=== PATIENT | female | born 1975 | race Caucasian/White ===

== ENCOUNTER 2018-02-27 09:31 | Emergency (ER) | payer OTHER ==
[2018-02-27] MEDS ORDERED: IPRATROPIUM/ALBUTEROL 3 ML NEB INH STA (09:50)
[2018-02-27] MEDS ORDERED: DEXAMETHASONE 10 MG/ML VIAL PO STA (09:50)
--- NOTE | 2018-02-27 09:53 | ED Physician Documentation ---
PD HPI DYSPNEA - Stated complaint Stated Complaint: DIFF BREATHING - Chief complaint Chief Complaint: Resp - History obtained from History obtained from: Patient, Family - History of Present Illness Timing - onset: How many weeks ago (1) Timing - onset during: Rest Timing - duration: Weeks (1) Timing - details: Gradual onset, Still present Inciting event(s): URI Improved by: Inhaler/neb Worsened by: Exertion, Laying flat, Coughing Associated symptoms: Cough, Wheezing Similar symptoms before: Diagnosis (bronchitis with asthma) Recently seen: Surgery - Additional information Additional information: 42-year-old female has had her gallbladder taken out about 3 weeks ago. About 1 week ago she began to have some cough and congestion and she has developed increasing shortness of breath associated with this. She is not have any sputum production she has not had a fever. She has not had chest pain. She is having a lot of trouble breathing and despite using her inhaler and nebulizer machine she continues to be short of breath. Her indicates she has some gurgling noise when she is asleep. Patient herself states that she has infrequent asthma attacks and last had to use her inhaler about 6 months ago. She has not been on prednisone for several years. She does not use an inhaler on a daily basis. Review of Systems Constitutional: denies: Fever, Chills, Myalgias Eyes: denies: Decreased vision Ears: denies: Ear pain Nose: reports: Rhinorrhea / runny nose, Congestion Throat: denies: Sore throat Cardiac: denies: Chest pain / pressure, Palpitations Respiratory: reports: Dyspnea, Cough, Wheezing GI: denies: Abdominal Pain, Nausea, Vomiting : denies: Dysuria, Frequency PD PAST MEDICAL HISTORY - Present Medications Home Medications: Ambulatory Orders Medication Instructions Recorded Confirmed Albuterol 2.5 mg INH Q4H PRN 02/27/18 02/27/18 Azithromycin [Zithromax] 250 mg PO DAILY #6 tablet 02/27/18 Duloxetine HCl 120 mg PO DAILY 02/27/18 02/27/18 Gabapentin 400 mg PO TID 02/27/18 02/27/18 Nortriptyline [Pamelor] 25 mg PO QPM 02/27/18 02/27/18 Prazosin HCl 4 tab PO DAILY PM 02/27/18 02/27/18 Terbinafine [LamISIL] 250 mg PO DAILY 02/27/18 02/27/18 hydrOXYzine HCl [Hydroxyzine HCl] 50 mg PO TID 02/27/18 02/27/18 predniSONE [Prednisone] 40 mg PO DAILY #10 tablet 02/27/18 - Allergies Allergies/Adverse Reactions: Allergies Allergy/AdvReac Type Severity Reaction Status Date / Time Penicillins Allergy Hives Verified 02/27/18 09:36 PD ED PE NORMAL - Vitals Vital signs reviewed: Yes (tachy ) - General General: Alert and oriented X 3, No acute distress, Well developed/nourished - HEENT HEENT: Atraumatic, PERRL, EOMI, Ears normal, Moist mucous membranes, Pharynx benign, Dentition benign, Other (There is angular chelitis present bilaterally ) - Neck Neck: Supple, no meningeal sign, No bony TTP - Cardiac Cardiac: RRR, No murmur - Respiratory Respiratory: No respiratory distress, Other (diminished breath sounds without focal rhonchi ) - Abdomen Abdomen: Soft - Back Back: No CVA TTP, No spinal TTP - Derm Derm: Normal color, Warm and dry, No rash - Extremities Extremities: No deformity, No edema - Neuro Neuro: Alert and oriented X 3, fisher dip net 2-12 intact, No motor deficit, No sensory deficit, Normal speech Eye Opening: Spontaneous Motor: Obeys Commands Verbal: Oriented GCS Score: 15 - Psych Psych: Normal mood, Normal affect Results - Vitals Vitals: Vital Signs - 24 hr 02/27/18 02/27/18 02/27/18 09:34 10:02 10:20 Temperature 36.1 C L Heart Rate 106 H 83 85 Respiratory 16 16 20 Rate Blood Pressure 128/51 L 118/67 O2 Saturation 98 95 Oxygen O2 Source Room air - Rads (name of study) 2 veiw chest Radiology: Prelim report reviewed (Impression: Normal two-view chest radiography for age and body habitus.), EMP read indepedently, See rad report PD MEDICAL DECISION MAKING - ED course Complexity details: reviewed old records, reviewed results, re-evaluated patient, considered differential, d/w patient, d/w family ED course: 42-year-old female with history of asthma has relief with use of the DuoNeb and treatment here in the emergency department and dexamethasone. She is diagnosed with asthmatic bronchitis will place her on a course of antibiotic and prednisone. - Sepsis Event Vital Signs: Vital Signs - 24 hr 02/27/18 02/27/18 02/27/18 09:34 10:02 10:20 Temperature 36.1 C L Heart Rate 106 H 83 85 Respiratory 16 16 20 Rate Blood Pressure 128/51 L 118/67 O2 Saturation 98 95 Oxygen O2 Source Room air Departure - Departure Disposition: Home, Self Care Clinical Impression: Asthmatic bronchitis with acute exacerbation Qualifiers: Asthma severity: mild Asthma persistence: intermittent Qualified Code(s): J45.21 - Mild intermittent asthma with (acute) exacerbation Condition: Stable Instructions: ED Bronchitis Asthmatic Follow-Up: Christine Butterfield MD [Primary Care Provider] - Prescriptions: Azithromycin [Zithromax] 250 mg PO DAILY #6 tablet predniSONE [Prednisone] 40 mg PO DAILY #10 tablet
--- NOTE | 2018-02-27 10:16 | XRAY Report ---
Reason: soa Procedure Date: 02/27/2018 Accession Number: [id number] / [id number] Procedure: XR - Chest 2 View X-Ray CPT Code: 22478 FULL RESULT: EXAM: CHEST RADIOGRAPHY EXAM DATE: 02/27/2018 10:05 AM. CLINICAL HISTORY: Soa. COMPARISON: None. TECHNIQUE: 2 views. FINDINGS: Lungs/Pleura: No focal opacities evident. No pleural effusion. No pneumothorax. Normal volumes. Mediastinum: Heart and mediastinal contours are unremarkable. Other: None. IMPRESSION: Normal 2-view chest radiography for age and body habitus. RADIA
[2018-02-27 12:41] VITALS: BP 113/70
== END 2018-02-27 12:46 | disposition home or self-care (01) ==
LOC: ED 09:31
DX: J45.21 Mild intermittent asthma with (acute) exacerbation (principal)
CPT/HCPCS: 71046; 94640; 99283

== ENCOUNTER 2018-04-17 09:49 | Emergency (ER) | payer OTHER ==
--- NOTE | 2018-04-17 11:45 | XRAY Report ---
Reason: right chest pain Procedure Date: 04/17/2018 Accession Number: [id number] / [id number] Procedure: XR - Chest 2 View X-Ray CPT Code: 00918 FULL RESULT: EXAM: CHEST RADIOGRAPHY EXAM DATE: 04/17/2018 11:11 AM. CLINICAL HISTORY: Right chest pain. COMPARISON: None. TECHNIQUE: 2 views. FINDINGS: Lungs/Pleura: No focal opacities evident. No pleural effusion. No pneumothorax. Normal volumes. Linear atelectasis or scarring left lung base Mediastinum: Heart and mediastinal contours are unremarkable. Other: None. IMPRESSION: No active cardiopulmonary disease RADIA
[2018-04-17] MEDS ORDERED: LIDOCAINE PATCH 5% TOP STA (12:29)
[2018-04-17] MEDS ORDERED: IBUPROFEN 400 MG TABLET PO STA (12:29)
--- NOTE | 2018-04-17 13:17 | ED Physician Documentation ---
History of Present Illness - Stated complaint Stated Complaint: RIGHT BREAST PX - Chief complaint Chief Complaint: General - Additonal information Additional information: hx from pt 42 female having a massage yesterday to work on her shoulder masseuse pressed hard on upper right chest and pt felt a pop and pain and it still hurts quite a lot quang with palp movement and breathing Review of Systems Cardiac: reports: Chest pain / pressure : denies: Now EGA (denies) PD PAST MEDICAL HISTORY - Past Medical History Past Medical History: Yes Respiratory: Asthma, Shortness of breath, Sleep apnea Neuro: Migraines GI: GERD Psych: Depression, Anxiety - Past Surgical History Past Surgical History: Yes General: Cholecystectomy, 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, Other - Present Medications Home Medications: Ambulatory Orders Medication Instructions Recorded Confirmed Albuterol 2.5 mg INH Q4H PRN 02/27/18 02/27/18 Duloxetine HCl 120 mg PO DAILY 02/27/18 02/27/18 Gabapentin 400 mg PO TID 02/27/18 02/27/18 Nortriptyline [Pamelor] 25 mg PO QPM 02/27/18 02/27/18 Prazosin HCl 4 tab PO DAILY PM 02/27/18 02/27/18 hydrOXYzine HCl [Hydroxyzine HCl] 50 mg PO TID 02/27/18 02/27/18 Baclofen [Lioresal] 10 mg PO 04/17/18 Cyclobenzaprine [Flexeril] 10 mg PO TID PRN #20 tablet 04/17/18 Ibuprofen [Motrin] 400 mg PO TIDWM PRN #20 tablet 04/17/18 Lidocaine Patch 5% [Lidoderm Patch] 1 patch TOP DAILY PRN #10 patch 04/17/18 - Allergies Allergies/Adverse Reactions: Allergies Allergy/AdvReac Type Severity Reaction Status Date / Time Penicillins Allergy Hives Verified 04/17/18 10:20 - Social History Does the pt smoke?: No Smoking Status: Never smoker Does the pt drink ETOH?: Yes Does the pt have substance abuse?: Yes - Immunizations Immunizations are current?: Yes - POLST Patient has POLST: No PD ED PE NORMAL - Vitals Vital signs reviewed: Yes - Neck Neck: Supple, no meningeal sign - Cardiac Cardiac: RRR - Respiratory Respiratory: No respiratory distress, Clear bilaterally, Other (TTP anterior chest wall no crepitus or ecchymosis or swelling) Results - Vitals Vitals: Vital Signs - 24 hr 04/17/18 10:13 Temperature 36.6 C Heart Rate 78 Respiratory 18 Rate Blood Pressure 131/91 H O2 Saturation 99 Oxygen O2 Source Room air - Rads (name of study) CXR Radiology: See rad report (no rib fx or pneumo or pulm contusion) Departure - Departure Disposition: 01 Home, Self Care Clinical Impression: Chest wall contusion Qualifiers: Encounter type: initial encounter Laterality: right Qualified Code(s): S20.211A - Contusion of right front wall of thorax, initial encounter Condition: Good Instructions: ED Contusion Chest Wall Prescriptions: Cyclobenzaprine [Flexeril] 10 mg PO TID PRN #20 tablet PRN Reason: Spasms Ibuprofen [Motrin] 400 mg PO TIDWM PRN #20 tablet PRN Reason: Pain Lidocaine Patch 5% [Lidoderm Patch] 1 patch TOP DAILY PRN #10 patch PRN Reason: pain Comments: The xray looks fine - no broken ribs or collapsed lung or lung contusion Wear the lidocaine patch for up to 12 hr a day as needed for the pain. Also motrin 400 mg three times a day with meals as needed for pain
[2018-04-17 14:49] VITALS: BP 128/88
== END 2018-04-17 13:26 | disposition home or self-care (01) ==
LOC: ED 09:49
DX: S20.211A Contusion of right front wall of thorax, initial encounter (principal); X58.XXXA Exposure to other specified factors, initial encounter
CPT/HCPCS: 71046; 99283; A9270

== ENCOUNTER 2018-05-15 08:55 | Emergency (ER) | payer OTHER ==
[2018-05-15] MEDS ORDERED: IPRATROPIUM/ALBUTEROL 3 ML NEB INH STA (09:19)
--- NOTE | 2018-05-15 09:22 | ED Physician Documentation ---
PD HPI DYSPNEA - Stated complaint Stated Complaint: COUGH/NEAR SYNCOPE - Chief complaint Chief Complaint: Resp - History obtained from History obtained from: Patient, Family - History of Present Illness Timing - onset: How many months ago (3) Timing - onset during: Rest Timing - duration: Months (3) Timing - details: Gradual onset, Still present, Waxing and waning Inciting event(s): URI Improved by: Inhaler/neb Worsened by: Coughing Associated symptoms: Cough, Wheezing Similar symptoms before: Diagnosis (asthma and pneumonia) Recently seen: Not recently seen - Additional information Additional information: 42-year-old female with a history of mild intermittent asthma has developed a cough beginning several months ago and she has had a persistent problem with this for several months. She was seen in the emergency department in February given a course of prednisone and Zithromax and despite this she failed out outpatient management and required an urgent care visit was diagnosed with pneumonia and placed on Levaquin with some improvement. Despite this she has had a persistent cough and about 3 days ago the cough worsened and today she had a coughing paroxysm resulting in syncope. She did not injure herself with a syncopal episode. She is previously been managed with her asthma on Qvar and after 4 years without any exacerbation she stopped the Qvar and did not require any medication until her asthma kicked up again this February. Review of Systems Constitutional: denies: Fever Eyes: denies: Decreased vision Ears: denies: Ear pain Nose: reports: Rhinorrhea / runny nose, Congestion Throat: denies: Sore throat Cardiac: denies: Chest pain / pressure, Palpitations, Pedal edema, Calf pain Respiratory: reports: Dyspnea, Cough, Wheezing GI: denies: Abdominal Pain, Nausea, Vomiting Skin: denies: Rash Musculoskeletal: denies: Neck pain, Back pain Neurologic: reports: Syncope. 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, Other - Present Medications Home Medications: Ambulatory Orders Medication Instructions Recorded Confirmed Albuterol 2.5 mg INH Q4H PRN 02/27/18 02/27/18 Duloxetine HCl 120 mg PO DAILY 02/27/18 02/27/18 Gabapentin 400 mg PO TID 02/27/18 02/27/18 Nortriptyline [Pamelor] 25 mg PO QPM 02/27/18 02/27/18 Prazosin HCl 4 tab PO DAILY PM 02/27/18 02/27/18 hydrOXYzine HCl [Hydroxyzine HCl] 50 mg PO TID 02/27/18 02/27/18 Ibuprofen [Motrin] 400 mg PO TIDWM PRN #20 tablet 04/17/18 Lidocaine Patch 5% [Lidoderm Patch] 1 patch TOP DAILY PRN #10 patch 04/17/18 Albuterol Sulf [Ventolin Hfa 1 - 2 puffs INH Q4HR PRN #1 inhaler 05/15/18 Inhaler] Hydrocodone/Acetaminophen 1 tab PO Q6HR PRN 05/15/18 05/15/18 [Hydrocodone-Acetamin 5-325 mg] Ipratropium/Albuterol [Duoneb] 3 ml INH Q6H PRN #30 neb 05/15/18 Levofloxacin [Levaquin] 500 mg PO DAILY #10 tablet 05/15/18 Rizatriptan Benzoate [Rizatriptan] 1 tab PO DAILY PRN 05/15/18 05/15/18 busPIRone [Buspar] 2 tab PO BID 05/15/18 05/15/18 predniSONE [Deltasone] 10 mg PO ONCE #26 tablet 05/15/18 - Allergies Allergies/Adverse Reactions: Allergies Allergy/AdvReac Type Severity Reaction Status Date / Time Penicillins Allergy Hives Verified 05/15/18 09:06 - Social History Does the pt smoke?: No Smoking Status: Never smoker Does the pt drink ETOH?: Yes Does the pt have substance abuse?: Yes - Immunizations Immunizations are current?: Yes - POLST Patient has POLST: No PD ED PE NORMAL - Vitals Vital signs reviewed: Yes (hypertensive ) - General General: Alert and oriented X 3, No acute distress, Well developed/nourished - HEENT HEENT: Atraumatic, PERRL, EOMI, Ears normal, Other (dry mucous membranes ) - Neck Neck: Supple, no meningeal sign, No bony TTP - Cardiac Cardiac: RRR, No murmur - Respiratory Respiratory: No respiratory distress, Other (diminished breath sounds with rhonchi in the left mid field ) - Abdomen Abdomen: Soft, Non tender - Back Back: No CVA TTP, No spinal TTP - Derm Derm: Normal color, Warm and dry, No rash - Extremities Extremities: No deformity, No edema - Neuro Neuro: Alert and oriented X 3, carver and checkerer specials 2-12 intact, No motor deficit, No sensory deficit, Normal speech Eye Opening: Spontaneous Motor: Obeys Commands Verbal: Oriented GCS Score: 15 - Psych Psych: Normal mood, Normal affect Results - Vitals Vitals: Vital Signs - 24 hr 05/15/18 05/15/18 09:03 09:31 Temperature 37 C Heart Rate 88 71 Respiratory 18 18 Rate Blood Pressure 130/85 H O2 Saturation 97 Oxygen O2 Source Room air - Rads (name of study) 2 view chest Radiology: Prelim report reviewed (Impression: Stable examination with no evidence of airspace consolidative disease.), EMP read indepedently, See rad report Procedures - IVC sono (time) 0918 Bedside IVC sono: IVC measures (cm) (1.81), IVC collapsed c insp (cm) (complete), Dehydration (mild est <500ml) PD MEDICAL DECISION MAKING - ED course Complexity details: considered differential, d/w patient, d/w family ED course: 42-year-old female with a history of asthma has had a coughing paroxysm and syncopal episode she is found to be mildly dehydrated on interrogation of the inferior vena cava. She has wheezing and rhonchi on examination and chest x-ray is obtained as well as a DuoNeb treatment. No evidence of pneumonia on x-ray exam. Today we will place patient on a course of prednisone and refill her albuterol inhaler as well as placing her on a course of Levaquin. Departure - Departure Disposition: 01 Home, Self Care Clinical Impression: Asthmatic bronchitis with acute exacerbation Qualifiers: Asthma severity: mild Asthma persistence: intermittent Qualified Code(s): J45.21 - Mild intermittent asthma with (acute) exacerbation Condition: Stable Instructions: ED Bronchitis Asthmatic Follow-Up: Christine Butterfield MD [Primary Care Provider] - Prescriptions: Albuterol Sulf [Ventolin Hfa Inhaler] 1 - 2 puffs INH Q4HR PRN #1 inhaler PRN Reason: Shortness Of Air/Wheezing Ipratropium/Albuterol [Duoneb] 3 ml INH Q6H PRN #30 neb PRN Reason: Dyspnea Levofloxacin [Levaquin] 500 mg PO DAILY #10 tablet predniSONE [Deltasone] 10 mg PO ONCE #26 tablet
--- NOTE | 2018-05-15 10:38 | XRAY Report ---
Reason: rhonchi left mid Procedure Date: 05/15/2018 Accession Number: [id number] / [id number] Procedure: XR - Chest 2 View X-Ray CPT Code: 20247 FULL RESULT: EXAM: CHEST RADIOGRAPHY EXAM DATE: 05/15/2018 10:21 AM. CLINICAL HISTORY: Rhonchi left mid. COMPARISON: CHEST 2 VIEW 04/17/2018 11:03 AM. TECHNIQUE: 2 views. FINDINGS: Lungs/Pleura: No focal opacities evident. No pleural effusion. No pneumothorax. Normal volumes. Mediastinum: Heart and mediastinal contours are stable. Other: None. IMPRESSION: Stable examination with no evidence of airspace consolidative disease. RADIA
[2018-05-15 10:54] VITALS: BP 127/69
== END 2018-05-15 10:53 | disposition home or self-care (01) ==
LOC: ED 08:55
DX: J45.21 Mild intermittent asthma with (acute) exacerbation (principal)
CPT/HCPCS: 71046; 94640; 99283; 99284

== ENCOUNTER 2018-09-21 10:49 | Emergency (ER) | payer OTHER ==
[2018-09-21] MEDS ORDERED: CHERRY SYRUP 10 ML UDC PO ONE (11:28)
[2018-09-21] MEDS ORDERED: DEXAMETHASONE 10 MG/ML VIAL PO STA (11:28)
[2018-09-21] MEDS ORDERED: IPRATROPIUM/ALBUTEROL 3 ML NEB INH STA (11:28)
--- NOTE | 2018-09-21 11:32 | ED Physician Documentation ---
PD HPI DYSPNEA - Stated complaint Stated Complaint: COUGH/CONGESTION - Chief complaint Chief Complaint: Resp - History obtained from History obtained from: Patient - History of Present Illness Timing - onset: How many days ago (about 10) Timing - details: Still present Worsened by: Coughing Associated symptoms: Cough Similar symptoms before: Diagnosis (asthma) - Treatment prior to arrival Treatment prior to arrival: nebulizer - Additional information Additional information: The patient is a 42-year-old female with history of asthma, who presents with nonproductive cough of about 1-1/2 weeks duration. She reports low-grade fever and shortness of breath. She has pain with inspiratory effort. She also reports headache, and slight sore throat. She denies abdominal pain, vomiting or diarrhea. She has a history of similar symptoms in the past, and review of her medical records reveals treatment for acute exacerbation of asthma here 4 months ago. She does not smoke cigarettes. Review of Systems Constitutional: reports: Fever Ears: denies: Ear pain Nose: reports: Congestion Throat: reports: Sore throat (slight) Cardiac: reports: Chest pain / pressure (with inspiration) Respiratory: reports: Dyspnea, Cough GI: denies: Abdominal Pain, Nausea, Vomiting : denies: Dysuria Skin: denies: Rash Musculoskeletal: denies: Neck pain, Extremity pain Neurologic: reports: Headache. 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, Other - Present Medications Home Medications: Ambulatory Orders Medication Instructions Recorded Confirmed Albuterol 2.5 mg INH Q4H PRN 02/27/18 02/27/18 Duloxetine HCl 120 mg PO DAILY 02/27/18 02/27/18 Gabapentin 400 mg PO TID 02/27/18 02/27/18 Nortriptyline [Pamelor] 25 mg PO QPM 02/27/18 02/27/18 Prazosin HCl 4 tab PO DAILY PM 02/27/18 02/27/18 hydrOXYzine HCl [Hydroxyzine HCl] 50 mg PO TID 02/27/18 02/27/18 Ibuprofen [Motrin] 400 mg PO TIDWM PRN #20 tablet 04/17/18 Lidocaine Patch 5% [Lidoderm Patch] 1 patch TOP DAILY PRN #10 patch 04/17/18 Albuterol Sulf [Ventolin Hfa 1 - 2 puffs INH Q4HR PRN #1 inhaler 05/15/18 Inhaler] Hydrocodone/Acetaminophen 1 tab PO Q6HR PRN 05/15/18 05/15/18 [Hydrocodone-Acetamin 5-325 mg] Ipratropium/Albuterol [Duoneb] 3 ml INH Q6H PRN #30 neb 05/15/18 Levofloxacin [Levaquin] 500 mg PO DAILY #10 tablet 05/15/18 Rizatriptan Benzoate [Rizatriptan] 1 tab PO DAILY PRN 05/15/18 05/15/18 busPIRone [Buspar] 2 tab PO BID 05/15/18 05/15/18 predniSONE [Deltasone] 10 mg PO ONCE #26 tablet 05/15/18 Benzonatate [Tessalon Perle] 100 - 200 mg PO TID PRN #30 capsule 09/21/18 predniSONE [Prednisone] 40 mg PO DAILY #10 tablet 09/21/18 - Allergies Allergies/Adverse Reactions: Allergies Allergy/AdvReac Type Severity Reaction Status Date / Time Penicillins Allergy Hives Verified 09/21/18 11:09 - Social History Does the pt smoke?: No Smoking Status: Never smoker Does the pt drink ETOH?: Yes Does the pt have substance abuse?: Yes - Immunizations Immunizations are current?: Yes - POLST Patient has POLST: No PD ED PE NORMAL - Vitals Vital signs reviewed: Yes (low grade temp.) - General General: Alert and oriented X 3, Other (overweight) - HEENT HEENT: Atraumatic, Pharynx benign - Neck Neck: Supple, no meningeal sign, No adenopathy, No JVD - Cardiac Cardiac: RRR, No murmur - Respiratory Respiratory: Other (Expiratory wheezed bilaterally.) - Abdomen Abdomen: Soft, Non tender - Back Back: No CVA TTP - Derm Derm: No rash - Extremities Extremities: No edema, No calf tenderness / cord - Neuro Neuro: Alert and oriented X 3, No motor deficit, Normal speech Results - Vitals Vitals: Vital Signs - 24 hr 09/21/18 09/21/18 09/21/18 11:10 12:05 13:23 Temperature 37.8 C H Heart Rate 108 H 100 98 Respiratory 20 16 14 Rate Blood Pressure 131/75 H 135/78 H O2 Saturation 98 99 Oxygen O2 Source Room air PD MEDICAL DECISION MAKING - ED course Complexity details: reviewed old records, re-evaluated patient, considered differential, d/w patient, d/w family ED course: The patient's presentation is most consistent with upper respiratory infection with acute exacerbation of asthma. Her presentation does not suggest pneumonia or pharyngitis. Treatment in the emergency department included DuoNeb nebulizer, which improved her air movement significantly. Dexamethasone 10 mg was administered orally. She is being discharged with prescription for prednisone and for Tessalon. I discussed with her and her the expected course of illness, outpatient treatment and follow-up, as well as potentially worrisome signs or symptoms that should prompt reevaluation in the emergency department. Departure - Departure Disposition: 01 Home, Self Care Clinical Impression: Upper respiratory tract infection Qualifiers: URI type: unspecified viral URI Qualified Code(s): J06.9 - Acute upper respir atory infection, unspecified Asthmatic bronchitis with acute exacerbation Qualifiers: Asthma severity: mild Asthma persistence: intermittent Qualified Code(s): J45.21 - Mild intermittent asthma with (acute) exacerbation Condition: Stable Instructions: ED Bronchitis Asthmatic Follow-Up: Olivier Armstrong PA [Primary Care Provider] - Prescriptions: Benzonatate [Tessalon Perle] 100 - 200 mg PO TID PRN #30 capsule PRN Reason: Cough predniSONE [Prednisone] 40 mg PO DAILY #10 tablet Comments: Continue using albuterol nebulizer as previously prescribed. Take prednisone daily for 5 days as prescribed. You can use Tessalon if needed for cough. Follow-up with your primary physician within 1 to 2 weeks. Call to schedule appointment. Return to the emergency department if you develop increasing difficulty breathing, or otherwise worsening symptoms. Discharge Date/Time: 09/21/18 13:24
[2018-09-21] MEDS ORDERED: ACETAMINOPHEN 325 MG TABLET PO STA (11:34)
[2018-09-21 14:31] VITALS: BP 135/78
== END 2018-09-21 13:24 | disposition home or self-care (01) ==
LOC: ED 10:49
DX: J06.9 Acute upper respiratory infection, unspecified (principal); J45.21 Mild intermittent asthma with (acute) exacerbation
CPT/HCPCS: 94640; 99283; A9270

== ENCOUNTER 2018-09-23 09:20 | Inpatient (IN) | payer OTHER ==
[2018-09-23] MEDS ORDERED: IPRATROPIUM/ALBUTEROL 3 ML NEB INH STA (09:48)
[2018-09-23] MEDS ORDERED: LACTATED RINGERS 1,000 ML IV STA ×2 (09:48)
[2018-09-23] MEDS ORDERED: DEXAMETHASONE 10 MG/ML VIAL IVP STA (09:49)
--- NOTE | 2018-09-23 10:02 | ED Physician Documentation ---
History of Present Illness - Stated complaint Stated Complaint: DIFFICUTLY BREATHING - Chief complaint Chief Complaint: Resp - History obtained from History obtained from: Patient, Family - History of Present Illness Timing: How many weeks ago (2) Pain level max: 0 Pain level now: 0 Improved by: Steroids, albuterol Worsened by: Standing, walking - Additonal information Additional information: 42-year-old female presents to the emergency department stating she has been ill for the past 2 weeks. Now developing fevers, worsening cough. She is an asthmatic and has been on prednisone for the last 2 days but feels like she is worsening. Feels lightheaded and dizzy with standing. States that when she coughs she feels tingling in her hands and toes. She is using her nebulizer every 6 hours at home and her inhaler every 1-2 hours. Was seen here 2 days ago and started on prednisone. No chest x-ray at that time. Review of Systems Ten Systems: 10 systems reviewed and negative Constitutional: reports: Fever (Subjective), Chills Nose: reports: Rhinorrhea / runny nose, Congestion Cardiac: denies: Chest pain / pressure Respiratory: reports: Dyspnea, Cough, Wheezing GI: denies: Abdominal Pain, Nausea, Vomiting, Diarrhea Skin: denies: Rash Musculoskeletal: denies: Neck pain, Back pain Neurologic: denies: Headache PD PAST MEDICAL HISTORY - Past Medical History Respiratory: Asthma, Shortness of breath, Sleep apnea Neuro: Migraines GI: GERD Psych: Depression, Anxiety - Past Surgical History Past Surgical History: Yes General: Cholecystectomy, 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, Other - Present Medications Home Medications: Ambulatory Orders Medication Instructions Recorded Confirmed Albuterol 2.5 mg INH Q4H PRN 02/27/18 09/23/18 Duloxetine HCl 120 mg PO DAILY 02/27/18 09/23/18 Gabapentin 400 mg PO TID 02/27/18 09/23/18 Nortriptyline [Pamelor] 25 mg PO QPM 02/27/18 09/23/18 Prazosin HCl 4 tab PO DAILY PM 02/27/18 09/23/18 hydrOXYzine HCl [Hydroxyzine HCl] 50 mg PO TID 02/27/18 09/23/18 Lidocaine Patch 5% [Lidoderm Patch] 1 patch TOP DAILY PRN #10 patch 04/17/18 09/23/18 Albuterol Sulf [Ventolin Hfa 1 - 2 puffs INH Q4HR PRN #1 inhaler 05/15/18 09/23/18 Inhaler] Hydrocodone/Acetaminophen 1 tab PO Q6HR PRN 05/15/18 09/23/18 [Hydrocodone-Acetamin 5-325 mg] Ipratropium/Albuterol [Duoneb] 3 ml INH Q6H PRN #30 neb 05/15/18 09/23/18 Rizatriptan Benzoate [Rizatriptan] 1 tab PO DAILY PRN 05/15/18 09/23/18 busPIRone [Buspar] 2 tab PO BID 05/15/18 09/23/18 Benzonatate [Tessalon Perle] 100 - 200 mg PO TID PRN #30 capsule 09/21/18 09/23/18 predniSONE [Prednisone] 40 mg PO DAILY #10 tablet 09/21/18 09/23/18 Ciclesonide [Alvesco] 1 puffs IN BID 09/23/18 09/23/18 buPROPion [Wellbutrin Xl] 1 tab PO DAILY 09/23/18 09/23/18 - Allergies Allergies/Adverse Reactions: Allergies Allergy/AdvReac Type Severity Reaction Status Date / Time Penicillins Allergy Hives Verified 09/23/18 09:25 - Social History Does the pt smoke?: No Smoking Status: Never smoker Does the pt drink ETOH?: Yes Does the pt have substance abuse?: Yes - Immunizations Immunizations are current?: Yes - POLST Patient has POLST: No PD ED PE NORMAL - Vitals Vital signs reviewed: Yes - General General: Alert and oriented X 3, Other (Appears uncomfortable, flushed face.) - HEENT HEENT: PERRL, Ears normal, Moist mucous membranes, Pharynx benign - Neck Neck: Supple, no meningeal sign - Cardiac Cardiac: Other (Tachycardic) - Respiratory Respiratory: Other (Diminished breath sounds and wheezing bilaterally) - Abdomen Abdomen: Soft, Non tender, Non distended - Derm Derm: Warm and dry, No rash - Extremities Extremities: No calf tenderness / cord - Neuro Neuro: Alert and oriented X 3 - Psych Psych: Normal mood, Normal affect Results - Vitals Vitals: Vital Signs - 24 hr 04/09/23/18 09/23/18 09:23 09:42 09:47 Temperature 35.8 C L Heart Rate 111 H 99 Respiratory 24 Rate Blood Pressure 144/80 H O2 Saturation 95 91 L 87 L 09/23/18 09/23/18 09/23/18 10:11 10:17 11:23 Temperature 36.9 C Heart Rate 98 85 84 Respiratory 18 26 H 18 Rate Blood Pressure 120/73 O2 Saturation 92 09/23/18 09/23/18 11:41 13:26 Temperature Heart Rate 99 106 H Respiratory 20 18 Rate Blood Pressure 125/70 115/54 L O2 Saturation 96 98 Oxygen O2 Source Nasal cannula - Labs Labs: Laboratory Tests 09/23/18 09/23/18 09/23/18 09:56 09:56 09:56 WBC 7.8 RBC 4.05 L Hgb 11.0 L Hct 33.4 L MCV 82.4 MCH 27.1 MCHC 32.9 RDW 14.9 Plt Count 292 MPV 6.7 L Neut # (Auto) 5.6 Lymph # (Auto) 1.6 [place] # (Auto) 0.6 Eos # (Auto) 0.0 Baso # (Auto) 0.0 Absolute Nucleated RBC 0.00 Nucleated RBC % 0.1 Sodium 136 Potassium 3.7 Chloride 98 L Carbon Dioxide 25 Anion Gap 13.0 BUN 11 Creatinine 0.9 Estimated GFR (MDRD) 69 L Glucose 96 Lactic Acid 1.0 Calcium 8.6 Total Bilirubin 0.4 AST 29 ALT 29 Alkaline Phosphatase 89 Total Protein 7.5 Albumin 3.4 Globulin 4.1 Albumin/Globulin Ratio 0.8 L Lipase 19 L Serum HCG, Qual Urine Color Urine Clarity Urine pH Ur Specific [place] Urine Protein Urine Glucose (UA) Urine Ketones Urine Occult Blood Urine Nitrite Urine Bilirubin Urine Urobilinogen Ur Leukocyte Esterase Ur Microscopic Review Urine Culture Comments Influenza A (Rapid) Influenza B (Rapid) 09/23/18 09/23/18 09/23/18 09:56 09:56 10:53 WBC RBC Hgb Hct MCV MCH MCHC RDW Plt Count MPV Neut # (Auto) Lymph # (Auto) [place] # (Auto) Eos # (Auto) Baso # (Auto) Absolute Nucleated RBC Nucleated RBC % Sodium Potassium Chloride Carbon Dioxide Anion Gap BUN Creatinine Estimated GFR (MDRD) Glucose Lactic Acid Calcium Total Bilirubin AST ALT Alkaline Phosphatase Total Protein Albumin Globulin Albumin/Globulin Ratio Lipase Serum HCG, Qual NEGATIVE Urine Color YELLOW Urine Clarity CLEAR Urine pH 6.0 Ur Specific [place] <=1.005 Urine Protein NEGATIVE Urine Glucose (UA) NEGATIVE Urine Ketones NEGATIVE Urine Occult Blood TRACE-INTA Urine Nitrite NEGATIVE Urine Bilirubin NEGATIVE Urine Urobilinogen 0.2 (NORMAL) Ur Leukocyte Esterase NEGATIVE Ur Microscopic Review NOT INDICATED Urine Culture Comments NOT INDICATED Influenza A (Rapid) Negative Influenza B (Rapid) Negative - Rads (name of study) Chest x-ray Radiology: Prelim report reviewed, EMP read contemporaneously, See rad report ( Consistent with bronchitis/bronchopneumonia of right lung. No confluent consolidation. ) PD MEDICAL DECISION MAKING - ED course Complexity details: reviewed old records, reviewed results, re-evaluated patient, considered differential, d/w patient, d/w family ED course: 42-year-old female with an asthma exacerbation and bronchopneumonia. Given IV antibiotics, Rocephin and azithromycin. Given dexamethasone on top of the prednisone she is already on. Received 3 breathing treatments. Is still requiring supplemental oxygen. Therefore will admit for further care. Discussed the case with Dr. Martinez, hospitalist who accepts. This document was made in part using voice recognition software. While efforts are made to proofread this document, sound alike and grammatical errors may occur. Departure - Departure Disposition: [facility] DC/Xfer Clinical Impression: Hypoxia Pneumonia Qualifiers: Pneumonia type: due to unspecified organism Laterality: right Lung location: upper lobe of lung Qualified Code(s): J18.1 - Lobar pneumonia, unspecified organism Asthma exacerbation Qualifiers: Asthma severity: unspecified severity Asthma persistence: unspecified Qualified Code(s): J45.901 - Unspecified asthma with (acute) exacerbation Condition: Stable
[2018-09-23 10:18] LABS: BASOPHILS % (AUTO) 0.3 %; EOSINOPHILS % (AUTO) 0.3 %; LYMPHOCYTES # (AUTO) 1.6 10^3/uL (1.5-3.5); LYMPHOCYTES % (AUTO) 19.8 %; MEAN CORPUSCULAR HEMOGLOBIN 27.1 pg (27.0-31.0); MEAN CORPUSCULAR HGB CONC 32.9 g/dL (32.0-36.0); MEAN CORPUSCULAR VOLUME 82.4 fL (81.0-99.0); MEAN PLATELET VOLUME 6.7 fL (7.9-10.8); MONOCYTES # (AUTO) 0.6 10^3/uL (0.0-1.0); NEUTROPHILS # (AUTO) 5.6 10^3/uL (1.5-6.6); NEUTROPHILS % (AUTO) 71.6 %; PLT - PLATELET COUNT 292 10^3/uL (130-450); RED BLOOD COUNT 4.05 10^6/uL (4.20-5.40); RED CELL DISTRIBUTION WIDTH 14.9 % (12.0-15.0); WHITE BLOOD COUNT 7.8 x10^3/uL (4.8-10.8)
[2018-09-23 10:25] LABS: ALBUMIN 3.4 g/dL (3.2-5.5); ALBUMIN/GLOBULIN RATIO 0.8 (1.0-2.2); BILIRUBIN,TOTAL 0.4 mg/dL (0.2-1.0); CALCIUM 8.6 mg/dL (8.5-10.3); CREATININE 0.9 mg/dL (0.4-1.0); TOTAL PROTEIN 7.5 g/dL (6.7-8.2)
[2018-09-23 10:34] LABS: HCG,QUALITATIVE BLOOD NEGATIVE
[2018-09-23 11:01] LABS: BILIRUBIN,URINE NEGATIVE (NEGATIVE); CLARITY,URINE CLEAR (CLEAR); GLUCOSE, URINE (UA) NEGATIVE (NEGATIVE); KETONES,URINE (UA) NEGATIVE (NEGATIVE); LEUKOCYTE ESTERASE, URINE NEGATIVE (NEGATIVE); NITRITE,URINE NEGATIVE (NEGATIVE); OCCULT BLOOD,URINE TRACE-INTA (NEGATIVE); PROTEIN,URINE NEGATIVE (NEGATIVE); UROBILINOGEN,URINE 0.2 (NORMAL) E.U./dL (NORMAL)
--- NOTE | 2018-09-23 11:01 | XRAY Report ---
Reason: cough Procedure Date: 09/23/2018 Accession Number: [id number] / [id number] Procedure: XR - Chest 2 View X-Ray CPT Code: 94781 FULL RESULT: EXAM: CHEST RADIOGRAPHY EXAM DATE: 09/23/2018 10:04 AM. CLINICAL HISTORY: Cough, shortness of breath on exertion. History of asthma. COMPARISON: 05/15/2018. TECHNIQUE: 2 views. FINDINGS: Lungs/Pleura: Interval hazy peribronchial opacities in the right lung including upper and lower lobes. No dense consolidation. Left lung essentially clear, with possible minor retrocardiac atelectasis. No pneumothorax or pleural effusion. Mediastinum: Heart size remains normal though more prominent. Stable superior mediastinal contour. Other: No fracture evident. IMPRESSION: 1. Consistent with bronchitis/bronchopneumonia of right lung. No confluent consolidation. RADIA
[2018-09-23] MEDS ORDERED: ALBUTEROL NEB 2.5 MG/3 ML INH STA (11:12)
[2018-09-23] MEDS ORDERED: AZITHROMYCIN INJ 500 MG in SODIUM CHLORIDE 0.9% 250 ML IV STA (11:14)
[2018-09-23] MEDS ORDERED: cefTRIAXone 1 GM VIAL IVP STA (11:14)
[2018-09-23] MEDS ORDERED: ALBUTEROL NEB 2.5 MG/3 ML INH ONE (11:27)
[2018-09-23] MEDS ORDERED: ONDANSETRON ODT 4 MG TABLET TL PRN (15:14)
[2018-09-23] MEDS ORDERED: SODIUM CHLORIDE FLUSH 0.9% 10 ML SYRINGE IVP PRN (15:14)
[2018-09-23] MEDS ORDERED: ONDANSETRON 4 MG/2 ML VIAL IVP PRN (15:14)
[2018-09-23] MEDS ORDERED: LIDOCAINE PATCH 5% TOP PRN (15:16)
[2018-09-23] MEDS ORDERED: RIZATRIPTAN BENZOATE 5 MG PO PRN (15:16)
[2018-09-23] MEDS: SODIUM CHLORIDE FLUSH 0.9% 10 ML SYRINGE IVP SCH (16:36)
[2018-09-23] MEDS: GABAPENTIN 400 MG CAPSULE PO SCH ×2 (16:36→22:20)
[2018-09-23] MEDS: hydrOXYzine PAMOATE 25 MG CAPSULE PO SCH ×2 (16:36→22:20)
[2018-09-23] MEDS: SODIUM CHLORIDE 0.9% 1,000 ML IV SCH (16:36)
[2018-09-23] MEDS: oxyCODONE 5 MG TABLET PO PRN (16:36)
[2018-09-23] MEDS ORDERED: BENZOCAINE/MENTHOL LOZENGE MM PRN (16:42)
--- NOTE | 2018-09-23 16:49 | HISTORY & PHYSICAL EXAMINATION ---
Chief Complaint - Chief Complaint Chief Complaint: Cough, Dyspnea, wheeze History of Present Illness - Admitted From Admitted From:: ED - History Obtained From History obtained from: Patient, chart records - History of Present Illness HPI Comment/Other: 42-year-old female presents to the emergency department stating she has been ill for the past 2 weeks. She was seen in the ED 2 days ago with dyspnea, cough and wheeze. She was given prednisone and neb treatments. No chest xray was done at that time. She has been taking her nebulizer every 6 hours and her inhaler every 1-2 hours at home, but her symptoms have gotten worse. She reports fever, chills, malaise, fatigue, along with severe cough and wheeze. She has baseline chronic nausea and soft stool since her gastric bypass surgery 5 years ago, but her GI symptoms have also gotten worse over the past 2 weeks. Her severe coughing triggers emesis about once a day, and her chronic loose stools has also gotten more severe. No hematochezia or hematemesis. Minimal exertion makes her respiratory symptoms worse. She becomes lightheaded and dizzy with minimal activity like sitting up or with persistent coughing and will intermittently have numbness/tingling in hands/toes with coughing. Taking her neb treatments provides some relief for about 30 minutes. She describes having a very poor immune system, explaining it doesn't take much to wipe her out and make her ill. She had just returned from visiting mom ([place]) who had cancerous polyps removed which was a stressful visit, then returned home to [facility] with familly members ill with Rhinovirus. She has had asthma since she was 19 years old. She felt it was under control while living in [place], but it has been poorly controlled since moving to [facility] in February to be near a friend. Her mother also has asthma as well as Ulcerative Colitis. In the ED, she was hypoxic at 87% on room air and was placed on nasal canula. Chest xray completed showing 1) Consistent with bronchitis/bronchopneumonia of right lung, no confluent consolidation. Afebrile, WBC 7.8 Rapid flu negative Patient will be admitted to the hospital due to hypoxia, failed outpatient treatment and abnormal xray. Pneumonia Severity Index score is 62 points, risk class II. However she has failed outpatient management with worsening. 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 3 pregnancies, 2 children. No bleeding or sexual concerns), Other - Family & Social History Family History: Mother: Alive and Well (Mom has ulcerative colitis), Asthma, Cancer, Hypertension, Father: Alive and Well, Diabetes, Type 2, Hypertension Living arrangement: At home Living Situation: With spouse/s.o., Other (with and two children) - Substance History Use: Uses substance without health or social issues: Alcohol, Cannabis, Other (Occasionally uses marijuana edibles and pen for pain. Alcohol every few m onths.) Abuse: Recurrent use of substance despite neg consequences: NONE - POLST Patient has POLST: No POLST Status: Full Code Meds/Allgy - Home Medications Home Medications: Ambulatory Orders Medication Instructions Recorded Confirmed Nortriptyline [Pamelor] 25 mg PO QPM 02/27/18 09/23/18 RX: Albuterol 2.5 mg INH Q4H PRN 02/27/18 09/23/18 RX: Duloxetine HCl 120 mg PO DAILY 02/27/18 09/23/18 RX: Gabapentin 400 mg PO TID 02/27/18 09/23/18 hydrOXYzine HCl [Hydroxyzine HCl] 50 mg PO TID 02/27/18 09/23/18 Lidocaine Patch 5% [Lidoderm Patch] 1 patch TOP DAILY PRN #10 patch 04/17/18 09/23/18 Hydrocodone/Acetaminophen 1 tab PO Q6HR PRN 05/15/18 09/23/18 [Hydrocodone-Acetamin 5-325 mg] Ipratropium/Albuterol [Duoneb] 3 ml INH Q6H PRN #30 neb 05/15/18 09/23/18 RX: Albuterol Sulf [Ventolin Hfa 1 - 2 puffs INH Q4HR PRN #1 inhaler 05/15/18 09/23/18 Inhaler] RX: busPIRone [Buspar] 2 tab PO BID 05/15/18 09/23/18 Rizatriptan Benzoate [Rizatriptan] 5 mg PO DAILY PRN 05/15/18 09/23/18 Benzonatate [Tessalon Perle] 100 - 200 mg PO TID PRN #30 capsule 09/21/18 09/23/18 RX: predniSONE [Prednisone] 40 mg PO DAILY #10 tablet 09/21/18 09/23/18 Ciclesonide [Alvesco] 1 puffs IN BID 09/23/18 09/23/18 Prazosin [Minipress] 4 mg PO QPM 09/23/18 09/23/18 buPROPion [Wellbutrin Xl] 150 mg PO DAILY 09/23/18 09/23/18 - Allergies Allergies/Adverse Reactions: Allergies Allergy/AdvReac Type Severity Reaction Status Date / Time Penicillins Allergy Hives Verified 09/23/18 09:25 Review of Systems - Constitutional Constitutional: reports: Chills, Malaise, Weakness, Diaphoresis - Eyes Eyes: reports: Other (Glasses, no changes in vision) - Cardiovascular Cariovascular: reports: Lightheadedness, Decr. exercise tolerance - Respiratory Respiratory: reports: Cough, Wheezing, SOB with exertion, Pleuritic pain - Gastrointestinal Gastrointestinal: reports: Diarrhea, Change in bowel habits, Nausea, Vomiting - Musculoskeletal Musculoskeletal: reports: Muscle aches, Joint pain - Psychiatric Psychiatric: reports: Depression (Well controlled with meds), Anxiety - All Other Systems All Other Systems: reports: Reviewed and negative Prior Level of Functionality: Independent, no use of DME.Drives, cleans her own house. Takes care of kids. Exam - Vital Signs Vital Signs: Vital Signs x48h Temp Pulse Pulse Resp BP BP Pulse Ox 09/23/18 16:00 36.4 C L 85 24 133/73 H 99 09/23/18 15:10 77 18 117/76 97 09/23/18 13:26 106 H 18 115/54 L 98 09/23/18 11:41 99 20 125/70 96 09/23/18 11:23 84 18 09/23/18 10:17 36.9 C 85 26 H 120/73 92 09/23/18 10:11 98 18 09/23/18 09:47 87 L 09/23/18 09:42 99 91 L 09/23/18 09:23 35.8 C L 111 H 24 144/80 H 95 Sepsis Event Note (H) - Evaluation Current Stage of Sepsis: Ruled out Conclusion/Plan - Problem List (1) Pneumonia Conclusion/Plan: Admitted with cough, dyspnea, wheeze and slight change in bowel habits near to diarrhea. Hypoxic in ED, 87% on room air. Placed on 2L NC with sats up to mid 90s. Chest Xray 09/23: Consistent with bronchitis/bronchopneumonia of right lung, no confluent consolidation. Afebrile, WBC 7.8 Rapid flu negative With change in stool, consider mycoplasma PLAN: Azythromycin 500mg IV daily Ceftriaxxone 2g IV daily IV hydration with NS at 100ml/hr Recheck CBC/BMP in AM Mycoplasma PCR Qualifiers: Pneumonia type: due to unspecified organism Laterality: right Lung location: upper lobe of lung Qualified Code(s): J18.1 - Lobar pneumonia, unspecified organism (2) Status asthmaticus Conclusion/Plan: Patient admitted to ED 2 days ago with cough dyspnea. Was started on prednisone and neb treatments. No chest xray at that time. Continues to have cough dyspnea, wheeze. PLAN Starting Methylprednisolone 40mg IV TID Budesonide 0.5mg INH BID Perforomist INH BID Albuterol 2.5mg INH q4h PRN wheeze In the outpatient setting consider adding LABA for the next few weeks and followup with PCP for this Qualifiers: Asthma persistence: persistent (3) Asthmatic bronchitis with acute exacerbation Conclusion/Plan: Patient admitted to ED 2 days ago with cough dyspnea. Was started on prednisone and neb treatments. No chest xray at that time. Continues to have cough dyspnea, wheeze. She describes having a very poor immune system, explaining it doesn't take much to make her ill or trigger her asthma. She had just returned from visiting mom ([place]?) who had cancerous polyps removed which was a stressful visit, then returned home to [facility] with familly members ill with Rhinovirus. She feels her asthma was well controlled until she moved from [place] to [facility] last February. Since then she has had increased exacerbations. PLAN Starting Methylprednisolone 40mg IV TID Budesonide 0.5mg INH BID Albuterol 2.5mg INH q4h PRN wheeze Qualifiers: Asthma severity: mild Asthma persistence: intermittent Qualified Code(s): J45.21 - Mild intermittent asthma with (acute) exacerbation (4) Diarrhea Conclusion/Plan: She has baseline chronic nausea and soft stool since her gastric bypass surgery 5 years ago, but her GI symptoms have also gotten worse over the past 2 weeks. Her severe coughing triggers emesis about once a day, and her chronic loose stools has also gotten more severe. Mom has Ulcerative Colitis DD: ulcerative colitis vs. infectious enteritis vs. bile induced secondary to loss of GB PLAN Receiving IVF Stool culture to rule infectious causes Stool for FOBT Stool for WBC If infection not present, trial of questran to sequester bile. If questran doesn't work, consider colonosopy in outpatient setting Qualifiers: Diarrhea type: unspecified type Qualified Code(s): R19.7 - Diarrhea, unspecified (5) Sleep apnea Conclusion/Plan: Pt reports having formal sleep study in the past and using Apap at night, but hasn't needed it since her gastric bypass surgery 5 years ago. and friend present for conversation believe she still has it, stating she has period where she "sounds like she's gurgling" PLAN Will hold on doing sleep study in the setting of PNA/asthma exacerbation. Will likely need outpatient sleep study to reevaluated and confirm if she still has ARLETTE (6) Anemia Conclusion/Plan: ROS neg for GI bleed. May have malabsorption due to elly-en-y.. Plan: Check anemia panel Qualifiers: Anemia type: unspecified type Qualified Code(s): D64.9 - Anemia, unspecified (7) Hyperglycemia, drug-induced Conclusion/Plan: Suspect steroids may be causing this. Plan: check A1c to verify start SS insulin, low dose protocol for now - Lab Results Fish Bones: 09/24/18 05:00 09/24/18 05:00 - Diagnostic Imaging Results Diagnostic Imaging Results: positive: Final report reviewed Diagnostic Imaging Results Comments: CHEST RADIOGRAPHY EXAM DATE: 09/23/2018 10:04 AM. CLINICAL HISTORY: Cough, shortness of breath on exertion. History of asthma. COMPARISON: 05/15/2018. TECHNIQUE: 2 views. FINDINGS: Lungs/Pleura: Interval hazy peribronchial opacities in the right lung including upper and lower lobes. No dense consolidation. Left lung essentially clear, with possible minor retrocardiac atelectasis. No pneumothorax or pleural effusion. Mediastinum: Heart size remains normal though more prominent. Stable superior mediastinal contour. Other: No fracture evident. IMPRESSION: 1. Consistent with bronchitis/bronchopneumonia of right lung. No confluent consolidation. Core Measures - Anticipated LOS I expect patient to be DC'd or transferred within 96 hours.: Yes - DVT/VTE - Prophylaxis VTE/DVT Device ordered at admit?: Yes
[2018-09-23] MEDS: ALBUTEROL NEB 2.5 MG/3 ML INH PRN ×2 (17:09→21:27)
[2018-09-23] MEDS: FORMOTEROL FUMARATE NEB 20 MCG/2 ML INH SCH (21:27)
[2018-09-23] MEDS: BUDESONIDE 0.5 MG/2 ML NEB INH SCH (21:27)
[2018-09-23] MEDS: PRAZOSIN 1 MG CAPSULE PO SCH (22:19)
[2018-09-23] MEDS: busPIRone 5 MG TABLET PO SCH (22:19)
[2018-09-23] MEDS: methylPREDNISolone SUCCINATE 40 MG/ML VIAL IVP SCH (22:20)
[2018-09-23] MEDS: NORTRIPTYLINE 25 MG CAPSULE PO SCH (22:20)
[2018-09-24] MEDS: SODIUM CHLORIDE FLUSH 0.9% 10 ML SYRINGE IVP SCH ×3 (01:49→18:11)
[2018-09-24] MEDS: SODIUM CHLORIDE 0.9% 1,000 ML IV SCH ×2 (02:07→15:35)
[2018-09-24 05:22] LABS: BASOPHILS % (AUTO) 0.1 %; HGB - HEMOGLOBIN 10.7 g/dL (12.0-16.0); LYMPHOCYTES # (AUTO) 0.9 10^3/uL (1.5-3.5); LYMPHOCYTES % (AUTO) 13.9 %; MEAN CORPUSCULAR HEMOGLOBIN 27.1 pg (27.0-31.0); MEAN CORPUSCULAR HGB CONC 32.4 g/dL (32.0-36.0); MEAN CORPUSCULAR VOLUME 83.7 fL (81.0-99.0); MEAN PLATELET VOLUME 6.6 fL (7.9-10.8); MONOCYTES # (AUTO) 0.4 10^3/uL (0.0-1.0); MONOCYTES % (AUTO) 6.9 %; NEUTROPHILS # (AUTO) 5.1 10^3/uL (1.5-6.6); NEUTROPHILS % (AUTO) 79.1 %; PLT - PLATELET COUNT 284 10^3/uL (130-450); RED BLOOD COUNT 3.95 10^6/uL (4.20-5.40); RED CELL DISTRIBUTION WIDTH 15.1 % (12.0-15.0); WHITE BLOOD COUNT 6.4 x10^3/uL (4.8-10.8)
[2018-09-24 05:30] LABS: CALCIUM 8.6 mg/dL (8.5-10.3); CREATININE 0.7 mg/dL (0.4-1.0)
[2018-09-24] MEDS: hydrOXYzine PAMOATE 25 MG CAPSULE PO SCH ×3 (06:27→21:30)
[2018-09-24] MEDS: GABAPENTIN 400 MG CAPSULE PO SCH ×3 (06:28→21:30)
[2018-09-24] MEDS: methylPREDNISolone SUCCINATE 40 MG/ML VIAL IVP SCH ×3 (06:28→21:30)
[2018-09-24] MEDS: FORMOTEROL FUMARATE NEB 20 MCG/2 ML INH SCH ×2 (07:39→19:41)
[2018-09-24] MEDS: BUDESONIDE 0.5 MG/2 ML NEB INH SCH ×2 (07:39→19:41)
[2018-09-24] MEDS: cefTRIAXone 2 GM in SODIUM CHLORIDE 0.9% MINIBAG 100 ML IV SCH (08:14)
[2018-09-24] MEDS: busPIRone 5 MG TABLET PO SCH ×2 (08:14→21:29)
[2018-09-24] MEDS: DULoxetine 30 MG CAPSULE PO SCH (08:14)
[2018-09-24] MEDS: buPROPion XL 150 MG TABLET PO SCH (08:14)
[2018-09-24] MEDS: POLYETHYLENE GLYCOL 3350 17 GM PACKET PO SCH (08:15)
[2018-09-24] MEDS ORDERED: predniSONE 20 MG TABLET PO SCH (09:00)
--- NOTE | 2018-09-24 10:29 | PROVIDER PROGRESS NOTE ---
Subjective - Prog Note Date Prog Note Date: 09/24/18 Prog Note Time: 10:27 - Subjective Pt reports feeling: Improved Objective - Vital Signs/Intake & Output Reviewed Vital Signs: Yes Vital Signs: Vital Signs x48h Temp Pulse Pulse Resp BP Pulse Ox 09/24/18 07:41 74 18 09/24/18 07:35 36.6 C 66 17 114/70 98 Intake & Output: Intake & Output 09/21/18 09/22/18 09/23/18 09/24/18 23:59 23:59 23:59 23:59 Intake Total 2250 1751.667 Balance 2250 1751.667 - Objective General Appearance: positive: No acute distress, Alert Eyes Bilateral: positive: Normal inspection, PERRL ENT: positive: ENT inspection nml, No signs of dehydration Neck: positive: Nml inspection, Other (R lower and upper lobes coarse wit mild inspiratory wheeze. Overall patient reports breathing is slightly easier from yesterday. Less dizzy/lightheaded with coughing/exertion. No more tingling in extremities with cough. R lower rib pain with cough.) Respiratory: positive: Wheezes, Other Cardiovascular: positive: Regular rate & rhythm, No murmur, No gallop Abdomen: positive: Non-tender, No organomegaly, Nml bowel sounds, No distention Skin: positive: Color nml, No rash, Warm, Dry Extremities: positive: Non-tender, Full ROM, Nml appearance Neurologic/Psychiatric: positive: Oriented x3, CN's nml (2-12), Motor nml, Sensation nml, Mood/affect nml - Lab Results Fish Bones: 09/24/18 05:00 09/24/18 05:00 Other Labs: Lab Results x24hrs 09/24/18 09/24/18 09/23/18 Range/Units 05:00 05:00 10:53 WBC 6.4 (4.8-10.8) x10^3/uL RBC 3.95 L (4.20-5.40) 10^6/uL Hgb 10.7 L (12.0-16.0) g/dL Hct 33.0 L (37.0-47.0) % MCV 83.7 (81.0-99.0) fL MCH 27.1 (27.0-31.0) pg MCHC 32.4 (32.0-36.0) g/dL RDW 15.1 H (12.0-15.0) % Plt Count 284 (130-450) 10^3/uL MPV 6.6 L (7.9-10.8) fL Neut # (Auto) 5.1 (1.5-6.6) 10^3/uL Lymph # (Auto) 0.9 L (1.5-3.5) 10^3/uL Converse # (Auto) 0.4 (0.0-1.0) 10^3/uL Eos # (Auto) 0.0 (0.0-0.7) 10^3/uL Baso # (Auto) 0.0 (0.0-0.1) 10^3/uL Absolute Nucleated RBC 0.00 x10^3/uL Nucleated RBC % 0.0 /100WBC Sodium 138 (135-145) mmol/L Potassium 4.3 (3.5-5.0) mmol/L Chloride 102 (101-111) mmol/L Carbon Dioxide 25 (21-32) mmol/L Anion Gap 11.0 (6-13) BUN 9 (6-20) mg/dL Creatinine 0.7 (0.4-1.0) mg/dL Estimated GFR (MDRD) 92 (>89) Glucose 172 H (70-100) mg/dL Calcium 8.6 (8.5-10.3) mg/dL Serum HCG, Qual Urine Color YELLOW Urine Clarity CLEAR (CLEAR) Urine pH 6.0 (5.0-7.5) PH Ur Specific [place] <=1.005 (1.002-1.030) Urine Protein NEGATIVE (NEGATIVE) mg/dL Urine Glucose (UA) NEGATIVE (NEGATIVE) mg/dL Urine Ketones NEGATIVE (NEGATIVE) mg/dL Urine Occult Blood TRACE-INTA (NEGATIVE) Urine Nitrite NEGATIVE (NEGATIVE) Urine Bilirubin NEGATIVE (NEGATIVE) Urine Urobilinogen 0.2 (NORMAL) (NORMAL) E.U./dL Ur Leukocyte Esterase NEGATIVE (NEGATIVE) Ur Microscopic Review NOT INDICATED Urine Culture Comments NOT INDICATED Influenza A (Rapid) (Negative) Influenza B (Rapid) (Negative) 09/23/18 09/23/18 Range/Units 09:56 09:56 WBC (4.8-10.8) x10^3/uL RBC (4.20-5.40) 10^6/uL Hgb (12.0-16.0) g/dL Hct (37.0-47.0) % MCV (81.0-99.0) fL MCH (27.0-31.0) pg MCHC (32.0-36.0) g/dL RDW (12.0-15.0) % Plt Count (130-450) 10^3/uL MPV (7.9-10.8) fL Neut # (Auto) (1.5-6.6) 10^3/uL Lymph # (Auto) (1.5-3.5) 10^3/uL [place] # (Auto) (0.0-1.0) 10^3/uL Eos # (Auto) (0.0-0.7) 10^3/uL Baso # (Auto) (0.0-0.1) 10^3/uL Absolute Nucleated RBC x10^3/uL Nucleated RBC % /100WBC Sodium (135-145) mmol/L Potassium (3.5-5.0) mmol/L Chloride (101-111) mmol/L Carbon Dioxide (21-32) mmol/L Anion Gap (6-13) BUN (6-20) mg/dL Creatinine (0.4-1.0) mg/dL Estimated GFR (MDRD) (>89) Glucose (70-100) mg/dL Calcium (8.5-10.3) mg/dL Serum HCG, Qual NEGATIVE Urine Color Urine Clarity (CLEAR) Urine pH (5.0-7.5) PH Ur Specific [place] (1.002-1.030) Urine Protein (NEGATIVE) mg/dL Urine Glucose (UA) (NEGATIVE) mg/dL Urine Ketones (NEGATIVE) mg/dL Urine Occult Blood (NEGATIVE) Urine Nitrite (NEGATIVE) Urine Bilirubin (NEGATIVE) Urine Urobilinogen (NORMAL) E.U./dL Ur Leukocyte Esterase (NEGATIVE) Ur Microscopic Review Urine Culture Comments Influenza A (Rapid) Negative (Negative) Influenza B (Rapid) Negative (Negative) Sepsis Event Note (H) - Evaluation Current Stage of Sepsis: Ruled out Assessment/Plan - Problem List (1) Pneumonia Impression: Admitted with cough, dyspnea, wheeze and slight change in bowel habits near to diarrhea. Hypoxic in ED, 87% on room air. Placed on 2L NC with sats up to mid 90s. Chest Xray 09/23: Consistent with bronchitis/bronchopneumonia of right lung, no confluent consolidation. Remains afebrile 36.6c, WBC 6.4 today Rapid flu negative With change in stool, consider mycoplasma Reports some improvement with breathing overnight. Still dyspneic with minimal exertion and coughing frequently. Less dizziness/lightheadedness and no more tingling in extremities with cough. Right lower rib pain with coughing, relief with oxycodone. -CBC/BMP stable PLAN: Azythromycin 500mg IV daily Ceftriaxxone 2g IV daily IV hydration with NS at 100ml/hr Recheck CBC/BMP in AM Mycoplasma PCR pending Qualifiers: Pneumonia type: due to unspecified organism Laterality: right Lung loca tion: upper lobe of lung Qualified Code(s): J18.1 - Lobar pneumonia, unspecified organism (2) Status asthmaticus Impression: Patient admitted to ED 2 days ago with cough dyspnea. Was started on prednisone and neb treatments. No chest xray at that time. Continues to have cough dyspnea, wheeze, though improved overnight. PRN Albuterol for wheeze needed once overnight PLAN Continue Methylprednisolone 40mg IV TID Budesonide 0.5mg INH BID Perforomist INH BID Albuterol 2.5mg INH q4h PRN wheeze In the outpatient setting consider adding LABA for the next few weeks and followup with PCP for this Qualifiers: Asthma persistence: persistent (3) Asthmatic bronchitis with acute exacerbation Impression: Patient admitted to ED 2 days ago with cough dyspnea. Was started on prednisone and neb treatments. No chest xray at that time. Continues to have cough dyspnea, wheeze though slight impovement overnight. She describes having a very poor immune system, explaining it doesn't take much to make her ill or trigger her asthma. She had just returned from visiting mom (Jocelynn?) who had cancerous polyps removed which was a stressful visit, then returned home to [facility] with familly members ill with Rhinovirus. She feels her asthma was well controlled until she moved from [place] to [facility] last February. Since then she has had increased exacerbations. PLAN Continue Methylprednisolone 40mg IV TID Budesonide 0.5mg INH BID Albuterol 2.5mg INH q4h PRN wheeze Qualifiers: Asthma severity: mild Asthma persistence: intermittent Qualified Code(s): J45.21 - Mild intermittent asthma with (acute) exacerbation (4) Diarrhea Impression: She has baseline chronic nausea and soft stool since her gastric bypass surgery 5 years ago, but her GI symptoms have also gotten worse over the past 2 weeks. Her severe coughing triggers emesis about once a day, and her chronic loose stools has also gotten more severe. Mom has Ulcerative Colitis Had 2 BMs overnight. DD: ulcerative colitis vs. infectious enteritis vs. bile induced secondary to loss of GB PLAN Receiving IVF Stool culture to rule infectious causes pending (sample obtained this am) Stool for FOBT Stool for WBC If infection not present, trial of questran to sequester bile. If questran doesn't work, consider colonosopy in outpatient setting Discussed colonoscopy as outpatient to r/o Ulcerative Colitis. Pt states she plans to see PCP soon and will follow up then. She has not had a colonoscopy in the past. Qualifiers: Qualifiers: Diarrhea type: unspecified type Qualified Code(s): R19.7 - Diarrhea, unspecified (5) Sleep apnea Impression: Pt reports having formal sleep study in the past and using Apap at night, but hasn't needed it since her gastric bypass surgery 5 years ago. and friend present for conversation believe she still has it, stating she has period where she "sounds like she's gurgling" PLAN Will hold on doing sleep study in the setting of PNA/asthma exacerbation. Will likely need outpatient sleep study to reevaluated and confirm if she still has ARLETTE (6) Anemia Impression: ROS neg for GI bleed. May have malabsorption due to elly-en-y.. Denies bleeding, hematochezia or hematemesis Plan: Check anemia pane Qualifiers: Anemia type: unspecified type Qualified Code(s): D64.9 - Anemia, unspecified (7) Hyperglycemia, drug-induced Impression: Suspect steroids may be causing this. BG 172 this am Plan: check A1c to verify start SS insulin, low dose protocol for now
[2018-09-24] MEDS: oxyCODONE 5 MG TABLET PO PRN ×2 (11:12→20:56)
[2018-09-24] MEDS: AZITHROMYCIN INJ 500 MG in SODIUM CHLORIDE 0.9% 250 ML IV SCH (11:17)
[2018-09-24] MEDS: ALBUTEROL NEB 2.5 MG/3 ML INH PRN ×2 (15:32→19:41)
[2018-09-24] MEDS: PRAZOSIN 1 MG CAPSULE PO SCH (21:29)
[2018-09-24] MEDS: NORTRIPTYLINE 25 MG CAPSULE PO SCH (21:30)
[2018-09-25] MEDS: SODIUM CHLORIDE 0.9% 1,000 ML IV SCH (00:55)
[2018-09-25] MEDS: SODIUM CHLORIDE FLUSH 0.9% 10 ML SYRINGE IVP SCH ×2 (02:50→09:58)
[2018-09-25 05:19] LABS: EOSINOPHILS % (AUTO) 0.1 %; HGB - HEMOGLOBIN 10.2 g/dL (12.0-16.0); LYMPHOCYTES # (AUTO) 1.6 10^3/uL (1.5-3.5); LYMPHOCYTES % (AUTO) 17.1 %; MEAN CORPUSCULAR HEMOGLOBIN 27.7 pg (27.0-31.0); MEAN CORPUSCULAR HGB CONC 33.9 g/dL (32.0-36.0); MEAN CORPUSCULAR VOLUME 81.5 fL (81.0-99.0); MEAN PLATELET VOLUME 6.6 fL (7.9-10.8); MONOCYTES # (AUTO) 0.7 10^3/uL (0.0-1.0); MONOCYTES % (AUTO) 7.1 %; NEUTROPHILS # (AUTO) 7.2 10^3/uL (1.5-6.6); NEUTROPHILS % (AUTO) 75.7 %; PLT - PLATELET COUNT 306 10^3/uL (130-450); WHITE BLOOD COUNT 9.5 x10^3/uL (4.8-10.8)
[2018-09-25 05:28] LABS: ABSOLUTE RETICS # AUTO 0.026 10^6/uL (0.020-0.110); MEAN RETIC VALUE 96.1; RED BLOOD COUNT 3.85 10^6/uL (4.20-5.40)
[2018-09-25 05:36] LABS: CALCIUM 8.6 mg/dL (8.5-10.3); CREATININE 0.7 mg/dL (0.4-1.0)
[2018-09-25 05:49] LABS: HB2 TOTAL 10.7 g/dL; HEMOGLOBIN A1C 0.46 g/dL; HEMOGLOBIN A1C % 6.1 % (4.6-6.2)
[2018-09-25] MEDS: GABAPENTIN 400 MG CAPSULE PO SCH (06:44)
[2018-09-25] MEDS: hydrOXYzine PAMOATE 25 MG CAPSULE PO SCH (06:44)
[2018-09-25] MEDS: methylPREDNISolone SUCCINATE 40 MG/ML VIAL IVP SCH (06:44)
[2018-09-25] MEDS: BUDESONIDE 0.5 MG/2 ML NEB INH SCH (07:36)
[2018-09-25] MEDS: ALBUTEROL NEB 2.5 MG/3 ML INH PRN (07:36)
[2018-09-25] MEDS: FORMOTEROL FUMARATE NEB 20 MCG/2 ML INH SCH (07:36)
[2018-09-25 08:16] VITALS: BP 124/67
[2018-09-25] MEDS: cefTRIAXone 2 GM in SODIUM CHLORIDE 0.9% MINIBAG 100 ML IV SCH (09:46)
[2018-09-25] MEDS: buPROPion XL 150 MG TABLET PO SCH (09:56)
[2018-09-25] MEDS: DULoxetine 30 MG CAPSULE PO SCH (09:56)
[2018-09-25] MEDS: POLYETHYLENE GLYCOL 3350 17 GM PACKET PO SCH (09:58)
[2018-09-25] MEDS: busPIRone 5 MG TABLET PO SCH (10:02)
[2018-09-25] MEDS: AZITHROMYCIN INJ 500 MG in SODIUM CHLORIDE 0.9% 250 ML IV SCH (10:51)
--- NOTE | 2018-09-25 11:36 | Discharge Plan ---
Discharge Plan Disposition: Home, Self Care Condition: Stable Prescriptions: Azithromycin 250 mg PO DAILY #4 tablet Fluticasone/Salmeterol [Advair 500-50 Diskus] 1 each IH BID #60 blst.w.dev guaiFENesin/CODEINE [Robitussin AC] 5 ml PO Q6H #120 udc Levofloxacin [Levaquin] 500 mg PO DAILY #4 tablet Diet: Regular Activity Restrictions: Activity as Tolerated Shower Restrictions: No Driving Restrictions: No Additional Instructions or Follow Up instructions: You were admitted to the hospital because of pneumonia in your right upper lung and your right lower lung. This caused your asthma to destabilize in your lungs, and, as a result, had severe asthma exacerbation. You are still wheezing but you feel much better and feel safe enough to go home. New medications: 1. Finish azithromycin daily for 4 more days 2. Finish Levaquin daily for 4 more days 3. Stop your Alvesco inhaled steroid and I am changing it to 4. Advair discus inhaler via inhalation twice a day 5. You have asked for cough medicine, and I am prescribing Robitussin-AC Please see your primary care provider KAMAR Ellis at the [facility]. Because I have escalated your therapy with a long-acting bronchodilator and steroid in the form of Advair, he will need to monitor your lung exam to start de-escalating your inhalers back to your usual medication. No Smoking: If you smoke, Please STOP! Call for help. Follow-up with: Olivier Armstrong PA [Primary Care Provider] -
--- NOTE | 2018-09-28 11:11 | DISCHARGE SUMMARY ---
Physician: Adriana Martinez MD DATE OF ADMISSION: 09/23/2018 DATE OF DISCHARGE: 09/25/2018 DISCHARGE DIAGNOSES 1. Community-acquired pneumonia. 2. Asthma with status asthmaticus. 3. Acute bronchitis with asthma. 4. Obstructive sleep apnea. 5. Diarrhea, chronic, present on admission. 6. Normocytic anemia. 7. Hyperglycemia due to drugs. DISCHARGE MEDICATIONS 1. Hydrocodone with acetaminophen 5/325 one tablet every 6 hours as needed. 2. Albuterol via nebulizer every 4 hours as needed. 3. Wellbutrin XL 150 mg daily. 4. BuSpar 5 mg tablet, 2 tablets p.o. b.i.d. 5. Duloxetine hydrochlorothiazide DR 120 mg p.o. daily. 6. Gabapentin 400 mg p.o. t.i.d. 7. Hydroxyzine 50 mg p.o. t.i.d. 8. Pamelor 25 mg p.o. q.p.m. 9. Minipress 4 mg nightly. 10. Rizatriptan 5 mg p.o. daily p.r.n. headache. 11. Azithromycin 250 mg p.o. daily #4. 12. Levaquin 500 mg p.o. daily #4. 13. Advair 500/50 one puff b.i.d., to rinse out her mouth after every use. 14. Robitussin A-C 5 mL p.o. q.6 hours p.r.n., 120 mL to be dispensed. PRINCIPAL PROCEDURES 1. Chest x-ray, September 23, with bronchitis and bronchopneumonia of the right upper and lower lung. No consolidation. 2. Campylobacter antigen assay negative, negative culture for Salmonella, Shigella, E. coli, Aeromonas, Edwardsiella, Plesiomonas, Yersinia, or Vibrio. 3. Clostridium difficile negative. 4. Influenza A and B rapid screen negative. HOSPITAL COURSE: She is a 42-year-old, morbidly obese female who has been ill for 2 weeks. She was seen in the emergency room 2 days ago with dyspnea, cough, wheezing. She was given prednisone and nebulizer treatments. No chest x-ray was done at that time. She has been taking her nebulizers every 6 hours and her inhaler every 1-2 hours at home. In spite of that, her symptoms are getting substantially worse. She reports high fever, chills, malaise, fatigue, as well as her severe cough and wheezing. She has chronic baseline nausea, and soft stool, almost liquid since her gastric bypass surgery 5 years ago; but her GI symptoms have gotten worse over the last 2 weeks. Her severe coughing triggers emesis at least once a day. No hematochezia or hematemesis. Minimal exertion makes her respiratory symptoms worse. She becomes lightheaded and dizzy with minimal activity like sitting up, or persistent coughing. She will have intermittent numbness and tingling in hands and toes with coughing. Taking her nebulizer treatment provides some relief for about 30 minutes. She had just returned from visiting her mother who lives in [place]. Mom had a cancerous polyp removed, and it was a stressful visit. She returned home to [facility], with all of her family members ill with rhinovirus. The patient herself has had asthma since the age of 19. She felt it was under control while living in [place]. However, since moving to [facility] in February 2018, her asthma has been very difficult to control. Mom has asthma, as well as ulcerative colitis. In the emergency room, she was hypoxic to 87% on room air, placed on nasal cannula. She was wheezing, coughing, had a hoarse voice, nasal tone of voice. Chest x-ray had bronchitis and bronchopneumonia of the right upper and lower lung. She did not have a fever, white cell count was 7.8. Rapid flu screen was negative. The patient was placed on IV Solu-Medrol, Rocephin, and azithromycin. Over the next 2 days, she improved steadily with less coughing, less wheezing. While she was still short of breath getting out of bed to walk to the bathroom, she said that the horrible spasmodic coughing had finally stopped, and she was able to eat something without gagging. She is felt to have some obstructive sleep apnea on exam. She says she used to do a CPAP but has not used it since gastric bypass surgery. Diarrhea was evaluated with stool cultures and negative. A normocytic anemia was present. Iron was 43, TIBC 315, transferrin 225. LDH 173. Retic count normal. Vitamin B12 normal at 279. During her stay, it was noted that her glucose was mildly elevated at 155-172, most likely secondary to steroids. A1c was 6.1%. Patient finally felt well enough to go home. Cough was controlled, wheezing was controlled. On the day of discharge, temperature was 36.6, pulse 78, blood pressure 124/67, respirations 16, 95% on room air. She still had an occasional cough. Voice was still hoarse; but she was much more relaxed, and no struggle to breathe like she was on admission. She still had diffuse mild rhonchi, especially in the upper lung britt on the right side, and scattered wheezing again predominantly on the right side versus the left side, but there was no tachypnea. No increased respiratory effort. No use of accessory muscles. The abdomen is obese. The extremities without edema. She ambulated without assistance. There was no ataxia. I felt that she would benefit from long-acting bronchodilator and long-acting steroid in the outpatient setting. As such, I have sent her home with a prescription for Advair. I have asked her to see her primary care provider, Olivier Armstrong, who is a PA with [facility]. He needs to reevaluate her to when to start de-escalating her therapy. I opted not to send her home on steroids. She had 2 days of IV drug steroids. She is to complete her antibiotic therapy with Levaquin and azithromycin, since she CANNOT DO PENICILLIN. As such, I could not prescribe amoxicillin. She asked if she could please have Robitussin A-C to be able to sleep at night. One bottle was prescribed to [facility] in [place]. I have also asked her to make sure she is followed up for obstructive sleep apnea. Even though she no longer uses the sleep mask, and she has lost weight from gastric bypass surgery, she should be evaluated in a formal fashion. Greater than 30 minutes was spent coordinating discharge. cc: KAMAR Ellis TD: 09/27/2018 15:07 MTDEmma
== END 2018-09-25 12:30 | disposition home or self-care (01) | DRG 194 ==
LOC: ED 09:20 → MS3 15:14
PROVIDERS: ADMIT Specialist; ATTEND Specialist
DX: J18.0 Bronchopneumonia, unspecified organism (principal); J45.52 Severe persistent asthma with status asthmaticus; A09 Infectious gastroenteritis and colitis, unspecified; Z68.42 Body mass index [BMI] 45.0-49.9, adult; J20.9 Acute bronchitis, unspecified; G47.33 Obstructive sleep apnea (adult) (pediatric); D64.9 Anemia, unspecified; E66.01 Morbid (severe) obesity due to excess calories; R73.9 Hyperglycemia, unspecified; T38.0X5A Adverse effect of glucocorticoids and synthetic analogues, initial encounter; Y92.230 Patient room in hospital as the place of occurrence of the external cause; F32.9 Major depressive disorder, single episode, unspecified; F41.9 Anxiety disorder, unspecified; G43.909 Migraine, unspecified, not intractable, without status migrainosus; Z98.84 Bariatric surgery status; Z79.891 Long term (current) use of opiate analgesic; Z79.51 Long term (current) use of inhaled steroids; Z79.899 Other long term (current) drug therapy
CPT/HCPCS: 36415; 71046; 80048; 80053; 81003; 82607; 83036; 83540; 83605; 83615; 83690; 84466; 84703; 85025; 85044; 87045; 87046; 87275; 87276; 87493; 94640; 96361; 96365; 96375; 99284; 99285; A9270; J7120; J7626; 81001; 87086; 87581

== ENCOUNTER 2018-10-09 17:23 | Emergency (ER) | payer OTHER ==
[2018-10-09 17:32] VITALS: BP 108/80
--- NOTE | 2018-10-09 18:20 | XRAY Report ---
Reason: crushing injury to right chest, pain with coughing Procedure Date: 10/09/2018 Accession Number: [id number] / [id number] Procedure: XR - Ribs w/PA Chest RT CPT Code: FULL RESULT: EXAM: RIGHT RIB RADIOGRAPHY EXAM DATE: 10/09/2018 05:53 PM. CLINICAL HISTORY: Right anterior rib pain below breast. COMPARISON: CHEST 2 VIEW 09/23/2018 9:52 AM. TECHNIQUE: 1 view of the chest and 2 views of the ribs. FINDINGS: Bones: No definable acute rib fracture or bone lesion evident. Lungs: No focal opacities. No pneumothorax. No pleural effusions. Right pulmonary opacities seen previously have resolved Mediastinum: Heart and mediastinal contours are unremarkable. Other: None. IMPRESSION: 1. No rib fracture or bone lesion evident. 2. Lungs clear. No pneumothorax. RADIA
[2018-10-09] MEDS ORDERED: HYDROcod/ACETAM 5/325 MG TABLET PO STA (18:45)
--- NOTE | 2018-10-09 18:45 | ED Physician Documentation ---
History of Present Illness - Stated complaint Stated Complaint: R SIDE RIB PX - Chief complaint Chief Complaint: General - History obtained from History obtained from: Patient (About a week ago she was on a carnival ride and part of the right hit her on the right chest wall and she has persistent pain there without shortness of breath.) Review of Systems Constitutional: reports: Reviewed and negative Nose: denies: Rhinorrhea / runny nose, Congestion Throat: denies: Dental pain / toothache, Sore throat Cardiac: reports: Chest pain / pressure. denies: Palpitations PD PAST MEDICAL HISTORY - Past Medical History Respiratory: Asthma, Shortness of breath, Sleep apnea Neuro: Migraines GI: GERD PLACEMENT SPECIALIST: Endometriosis, Other : None HEENT: None Psych: Depression, Anxiety Musculoskeletal: None Derm: None - Past Surgical History Past Surgical History: Yes General: Cholecystectomy, Gastric surgery /PLACEMENT SPECIALIST: Hysterectomy, Other - Present Medications Home Medications: Ambulatory Orders Medication Instructions Recorded Confirmed Albuterol 2.5 mg INH Q4H PRN 02/27/18 09/23/18 Duloxetine HCl 120 mg PO DAILY 02/27/18 09/23/18 Gabapentin 400 mg PO TID 02/27/18 09/23/18 Nortriptyline [Pamelor] 25 mg PO QPM 02/27/18 09/23/18 hydrOXYzine HCl [Hydroxyzine HCl] 50 mg PO TID 02/27/18 09/23/18 Lidocaine Patch 5% [Lidoderm Patch] 1 patch TOP DAILY PRN #10 patch 04/17/18 09/23/18 Albuterol Sulf [Ventolin Hfa 1 - 2 puffs INH Q4HR PRN #1 inhaler 05/15/18 09/23/18 Inhaler] Hydrocodone/Acetaminophen 1 tab PO Q6HR PRN 05/15/18 09/23/18 [Hydrocodone-Acetamin 5-325 mg] Ipratropium/Albuterol [Duoneb] 3 ml INH Q6H PRN #30 neb 05/15/18 09/23/18 Rizatriptan Benzoate [Rizatriptan] 5 mg PO DAILY PRN 05/15/18 09/23/18 busPIRone [Buspar] 2 tab PO BID 05/15/18 09/23/18 Benzonatate [Tessalon Perle] 100 - 200 mg PO TID PRN #30 capsule 09/21/18 09/23/18 predniSONE [Prednisone] 40 mg PO DAILY #10 tablet 09/21/18 09/23/18 Prazosin [Minipress] 4 mg PO QPM 09/23/18 09/23/18 buPROPion [Wellbutrin Xl] 150 mg PO DAILY 09/23/18 09/23/18 Azithromycin 250 mg PO DAILY #4 tablet 09/25/18 Fluticasone/Salmeterol [Advair 1 each IH BID #60 blst.w.dev 09/25/18 500-50 Diskus] Levofloxacin [Levaquin] 500 mg PO DAILY #4 tablet 09/25/18 guaiFENesin/CODEINE [Robitussin AC] 5 ml PO Q6H #120 udc 09/25/18 Hydrocodone/Acetaminophen 1 - 2 each PO Q6H PRN #14 tablet 10/09/18 [Hydrocodon-Acetaminophen 5-325] - Allergies Allergies/Adverse Reactions: Allergies Allergy/AdvReac Type Severity Reaction Status Date / Time Penicillins Allergy Hives Verified 10/09/18 17:32 - Social History Does the pt smoke?: No Smoking Status: Never smoker Does the pt drink ETOH?: Yes Does the pt have substance abuse?: Yes - Immunizations Immunizations are current?: Yes - POLST Patient has POLST: No POLST Status: Full Code PD ED PE NORMAL - Vitals Vital signs reviewed: Yes - General General: Alert and oriented X 3, No acute distress - Neck Neck: Supple, no meningeal sign, No bony TTP - Cardiac Cardiac: RRR, No murmur - Respiratory Respiratory: Clear bilaterally, Other (TTP over about rib 9 on the right laterally, no ecchymosis) - Abdomen Abdomen: Non tender - Extremities Extremities: No edema, No calf tenderness / cord - Neuro Neuro: Alert and oriented X 3, Normal speech Results - Vitals Vitals: Vital Signs - 24 hr 10/09/18 17:30 Temperature 37.2 C Heart Rate 90 Respiratory 18 Rate Blood Pressure 108/80 O2 Saturation 97 Oxygen O2 Source Room air - Rads (name of study) R RIBS AND CHEST Radiology: EMP read contemporaneously (NORMAL) Departure - Departure Disposition: 01 Home, Self Care Clinical Impression: Chest wall contusion Qualifiers: Encounter type: initial encounter Laterality: right Qualified Code(s): S20.211A - Contusion of right front wall of thorax, initial encounter Condition: Good Record reviewed to determine appropriate education?: Yes Instructions: ED Contusion Vs Minor Fx Rib Prescriptions: Hydrocodone/Acetaminophen [Hydrocodon-Acetaminophen 5-325] 1 - 2 each PO Q6H PRN #14 tablet PRN Reason: pain Comments: Call your doctor to arrange a follow-up appointment, make the next available appointment. In the interim, return anytime if worse or if new symptoms develop.
== END 2018-10-09 18:51 | disposition home or self-care (01) ==
LOC: ED 17:23
DX: S20.211A Contusion of right front wall of thorax, initial encounter (principal); W22.8XXA Striking against or struck by other objects, initial encounter; Y93.I9 Activity, other involving external motion; Y92.831 Amusement park as the place of occurrence of the external cause
CPT/HCPCS: 71101; 99283; A9270

== ENCOUNTER 2019-08-16 15:26 | Emergency (ER) | payer OTHER ==
--- NOTE | 2019-08-16 16:18 | XRAY Report ---
Reason: cough, shortness of breath Procedure Date: 08/16/2019 Accession Number: [id number] / [id number] Procedure: XR - Chest 2 View X-Ray CPT Code: 30112 Final Report FULL RESULT: EXAM: CHEST RADIOGRAPHY EXAM DATE: 08/16/2019 03:56 PM. CLINICAL HISTORY: Cough, shortness of breath. Cough for more than 1 week. COMPARISON: CHEST 2 VIEW 09/23/2018 9:52 AM. TECHNIQUE: 2 views. FINDINGS: Lungs/Pleura: No focal opacities evident. No pleural effusion. No pneumothorax. Normal volumes. Mediastinum: Heart and mediastinal contours are unremarkable. Other: None. IMPRESSION: No consolidation. RADIA
[2019-08-16] MEDS ORDERED: predniSONE 20 MG TABLET PO STA (17:49)
--- NOTE | 2019-08-16 17:53 | ED Physician Documentation ---
PD HPI CHEST PAIN - Stated complaint Stated Complaint: COUGH, SOA - Chief complaint Chief Complaint: Resp - History obtained from History obtained from: Patient - History of Present Illness Timing - onset: Other (43-year-old woman with history of asthma on a steroid inhaler and as needed albuterol and DuoNeb presents with about 3 days of increased cough and shortness of breath. No fevers. She had a secondhand exposure to COVID19, her stayed with her best friend who is a veneer slicing machine operator at [facility] in [place]. 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, Other : None HEENT: None Psych: Depression, Anxiety Musculoskeletal: None Derm: None - Past Surgical History Past Surgical History: Yes General: Cholecystectomy, Gastric surgery /DRIVE AWAY DRIVER: Hysterectomy, Other - Present Medications Home Medications: Ambulatory Orders Medication Instructions Recorded Confirmed Albuterol 2.5 mg INH Q4H PRN 02/27/18 09/23/18 Duloxetine HCl 120 mg PO DAILY 02/27/18 09/23/18 Gabapentin 400 mg PO TID 02/27/18 09/23/18 Nortriptyline [Pamelor] 25 mg PO QPM 02/27/18 09/23/18 hydrOXYzine HCL [Hydroxyzine HCl] 50 mg PO TID 02/27/18 09/23/18 Lidocaine Patch 5% [Lidoderm Patch] 1 patch TOP DAILY PRN #10 patch 04/17/18 09/23/18 Albuterol Sulf [Ventolin Hfa 1 - 2 puffs INH Q4HR PRN #1 inhaler 05/15/18 09/23/18 Inhaler] Hydrocodone/Acetaminophen 1 tab PO Q6HR PRN 05/15/18 09/23/18 [Hydrocodone-Acetamin 5-325 mg] Ipratropium/Albuterol [Duoneb] 3 ml INH Q6H PRN #30 neb 05/15/18 09/23/18 Rizatriptan Benzoate [Rizatriptan] 5 mg PO DAILY PRN 05/15/18 09/23/18 busPIRone [Buspar] 2 tab PO BID 05/15/18 09/23/18 Benzonatate [Tessalon Perle] 100 - 200 mg PO TID PRN #30 capsule 09/21/18 09/23/18 predniSONE [Prednisone] 40 mg PO DAILY #10 tablet 09/21/18 09/23/18 Prazosin [Minipress] 4 mg PO QPM 09/23/18 09/23/18 buPROPion [Wellbutrin Xl] 150 mg PO DAILY 09/23/18 09/23/18 Azithromycin 250 mg PO DAILY #4 tablet 09/25/18 Fluticasone/Salmeterol [Advair 1 each IH BID #60 blst.w.dev 09/25/18 500-50 Diskus] Levofloxacin [Levaquin] 500 mg PO DAILY #4 tablet 09/25/18 guaiFENesin/CODEINE [Robitussin AC] 5 ml PO Q6H #120 udc 09/25/18 Hydrocodone/Acetaminophen 1 - 2 each PO Q6H PRN #14 tablet 10/09/18 [Hydrocodon-Acetaminophen 5-325] predniSONE [Deltasone] 20 mg PO [id number] #21 tab 08/16/19 - Allergies Allergies/Adverse Reactions: Allergies Allergy/AdvReac Type Severity Reaction Status Date / Time Penicillins Allergy Hives Verified 08/16/19 15:40 - Social History Does the pt smoke?: No Smoking Status: Never smoker Does the pt drink ETOH?: Yes Does the pt have substance abuse?: Yes - Immunizations Immunizations are current?: Yes - POLST Patient has POLST: No POLST Status: Full Code PD ED PE NORMAL - Vitals Vital signs reviewed: Yes - General General: Alert and oriented X 3, No acute distress - HEENT HEENT: Pharynx benign - Neck Neck: Supple, no meningeal sign, No bony TTP - Cardiac Cardiac: RRR, No murmur - Respiratory Respiratory: No respiratory distress, Other (mild exp wheezes) - Abdomen Abdomen: Non tender - Derm Derm: Normal color, Warm and dry - Extremities Extremities: No edema, No calf tenderness / cord - Neuro Neuro: Alert and oriented X 3, Normal speech Results - Vitals Vitals: Vital Signs - 24 hr 08/16/19 08/16/19 15:31 18:04 Temperature 36 C L Heart Rate 64 57 L Respiratory 18 18 Rate Blood Pressure 137/81 H 124/87 H O2 Saturation 96 100 Oxygen O2 Source Room air - Rads (name of study) 2 view chest x-ray Radiology: EMP read contemporaneously (Unremarkable) PD MEDICAL DECISION MAKING - ED course ED course: 43-year-old woman with secondhand exposure to COVID 19, she has a history of asthma. She is not in extremis and only had mild wheezes on a nebulizer here, mostly wants the testing done and this is ordered and a course of steroids which is not unreasonable. Her nurse practitioner was updated by phone at her request. Thankfully no fevers. Departure - Departure Disposition: 01 Home, Self Care Clinical Impression: Asthma exacerbation Qualifiers: Asthma severity: mild Asthma persistence: intermittent Qualified Code(s): J45.21 - Mild intermittent asthma with (acute) exacerbation Condition: Good Record reviewed to determine appropriate education?: Yes Instructions: Asthma Dc Prescriptions: predniSONE [Deltasone] 20 mg PO [id number] #21 tab Comments: Call your doctor to arrange a follow-up appointment, make the next available appointment. In the interim, return anytime if worse or if new symptoms develop. Discharge Date/Time: 08/16/19 18:10
[2019-08-16 18:05] VITALS: BP 124/87
== END 2019-08-16 18:10 | disposition home or self-care (01) ==
LOC: ED 15:26
DX: J45.21 Mild intermittent asthma with (acute) exacerbation (principal)
CPT/HCPCS: 71046; 81599; 99284; J7512

== ENCOUNTER 2019-10-08 10:07 | Emergency (ER) | payer OTHER ==
--- NOTE | 2019-10-08 11:42 | ED Physician Documentation ---
PD HPI HEADACHE - Stated complaint Stated Complaint: HEADACHE - Chief complaint Chief Complaint: Neuro - History obtained from History obtained from: Patient - History of Present Illness Timing - onset: How many days ago (4) Timing - onset during: Rest, Light activity Timing - duration: Days (4) Timing - details: Gradual onset, Waxing and waning Worst headache ever?: No: Worst headache ever? Location: Front, Right (periorbital and to right ear) Quality: Throbbing, Aching Associated symptoms: Other (congestion and ear pain). No: Fever, Stiff neck, Nausea, Vision changes Worsened by: Moving. No: Light, Noise Similar symptoms before: Has not had sx before (history of chronic recurrent headaches, but this does not feel like those. She feels more sinus related.) Review of Systems Constitutional: reports: Myalgias. denies: Fever, Chills Nose: reports: Congestion, Sinus pressure / pain (right frontal and periorbital). 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, Other : None HEENT: None Psych: Depression, Anxiety Musculoskeletal: None Derm: None - Past Surgical History Past Surgical History: Yes General: Cholecystectomy, Gastric surgery /SERVER SECURITY ADMINISTRATOR: Hysterectomy, Other - Present Medications Home Medications: Ambulatory Orders Medication Instructions Recorded Confirmed Albuterol 2.5 mg INH Q4H PRN 02/27/18 09/23/18 Duloxetine HCl 120 mg PO DAILY 02/27/18 09/23/18 Gabapentin 400 mg PO TID 02/27/18 09/23/18 Nortriptyline [Pamelor] 25 mg PO QPM 02/27/18 09/23/18 hydrOXYzine HCL [Hydroxyzine HCl] 50 mg PO TID 02/27/18 09/23/18 Lidocaine Patch 5% [Lidoderm Patch] 1 patch TOP DAILY PRN #10 patch 04/17/18 09/23/18 Albuterol Sulf [Ventolin Hfa 1 - 2 puffs INH Q4HR PRN #1 inhaler 05/15/18 09/23/18 Inhaler] Hydrocodone/Acetaminophen 1 tab PO Q6HR PRN 05/15/18 09/23/18 [Hydrocodone-Acetamin 5-325 mg] Ipratropium/Albuterol [Duoneb] 3 ml INH Q6H PRN #30 neb 05/15/18 09/23/18 Rizatriptan Benzoate [Rizatriptan] 5 mg PO DAILY PRN 05/15/18 09/23/18 busPIRone [Buspar] 2 tab PO BID 05/15/18 09/23/18 Benzonatate [Tessalon Perle] 100 - 200 mg PO TID PRN #30 capsule 09/21/18 09/23/18 predniSONE [Prednisone] 40 mg PO DAILY #10 tablet 09/21/18 09/23/18 Prazosin [Minipress] 4 mg PO QPM 09/23/18 09/23/18 buPROPion [Wellbutrin Xl] 150 mg PO DAILY 09/23/18 09/23/18 Azithromycin 250 mg PO DAILY #4 tablet 09/25/18 Fluticasone/Salmeterol [Advair 1 each IH BID #60 blst.w.dev 09/25/18 500-50 Diskus] Levofloxacin [Levaquin] 500 mg PO DAILY #4 tablet 09/25/18 guaiFENesin/CODEINE [Robitussin AC] 5 ml PO Q6H #120 udc 09/25/18 Hydrocodone/Acetaminophen 1 - 2 each PO Q6H PRN #14 tablet 10/09/18 [Hydrocodon-Acetaminophen 5-325] predniSONE [Deltasone] 20 mg PO [id number] #21 tab 08/16/19 Cetirizine [ZyrTEC] 10 mg PO DAILY #15 tablet 10/08/19 Doxycycline Monohydrate 100 mg PO BID #14 tablet 10/08/19 Fluticasone [Flonase] 1 sprays [place] BID #1 bottle 10/08/19 Ondansetron Odt [Zofran] 4 mg TL Q6H PRN #10 tablet 10/08/19 dexAMETHasone [Decadron] 4 mg PO DAILY #5 tablet 10/08/19 - Allergies Allergies/Adverse Reactions: Allergies Allergy/AdvReac Type Severity Reaction Status Date / Time Penicillins Allergy Hives Verified 10/08/19 10:49 - Social History Does the pt smoke?: No Smoking Status: Never smoker Does the pt drink ETOH?: Yes Does the pt have substance abuse?: Yes - Immunizations Immunizations are current?: Yes - POLST Patient has POLST: No POLST Status: Full Code PD ED PE NORMAL - Vitals Vital signs reviewed: Yes - General General: Alert and oriented X 3, No acute distress, Well developed/nourished - HEENT HEENT: PERRL, EOMI, Moist mucous membranes, Pharynx benign. No: Ears normal (left normal. right TM with fluid and bulging, some redness. ) - Neck Neck: Supple, no meningeal sign, No adenopathy - Cardiac Cardiac: RRR, No murmur - Respiratory Respiratory: Clear bilaterally - Derm Derm: Normal color, Warm and dry, No rash Results - Vitals Vitals: Oxygen O2 Source Room air PD MEDICAL DECISION MAKING - ED course Complexity details: considered differential (congestion and frontal/right periorbital pressue headache. Right TM with fluid. ), d/w patient Departure - Departure Disposition: 01 Home, Self Care Clinical Impression: Frontal headache Acute sinusitis Qualifiers: Sinusitis location: frontal Recurrence: non-recurrent Qualified Code(s): J01.10 - Acute frontal sinusitis, unspecified Condition: Stable Record reviewed to determine appropriate education?: Yes Instructions: ED Sinusitis Abx Tx Follow-Up: Olivier Armstrong PA [Primary Care Provider] - Prescriptions: Cetirizine [ZyrTEC] 10 mg PO DAILY #15 tablet dexAMETHasone [Decadron] 4 mg PO DAILY #5 tablet Doxycycline Monohydrate 100 mg PO BID #14 tablet Fluticasone [Flonase] 1 sprays [place] BID #1 bottle Ondansetron Odt [Zofran] 4 mg TL Q6H PRN #10 tablet PRN Reason: Nausea / Vomiting Comments: Stay well-hydrated. Doxycycline antibiotic twice daily for a week for sinus and ear infection. Ondansetron if needed for nausea. Tylenol if needed for fevers and pains. Dexamethasone steroid anti-inflammatory daily for several more days. Then start fluticasone steroid nasal spray for inflammation of the sinuses. Cetirizine antihistamine daily for a week or 2 as well. Recheck if not improving well over the next several days and resolved within a week. Return if worsening. Discharge Date/Time: 10/08/19 12:33
[2019-10-08] MEDS ORDERED: CHERRY SYRUP 10 ML UDC PO ONE (12:11)
[2019-10-08] MEDS ORDERED: DEXAMETHASONE 10 MG/ML VIAL PO STA (12:11)
[2019-10-08] MEDS ORDERED: DOXYCYCLINE 100 MG TABLET PO STA (12:11)
[2019-10-08] MEDS ORDERED: ACETAMINOPHEN 325 MG TABLET PO STA (12:11)
[2019-10-08 12:33] VITALS: BP 112/84
== END 2019-10-08 12:33 | disposition home or self-care (01) ==
LOC: ED 10:07
DX: J01.10 Acute frontal sinusitis, unspecified (principal)
CPT/HCPCS: 99284; A9270